=== PATIENT | female | born 1995 | race Caucasian/White ===

== ENCOUNTER 2024-05-03 21:07 | Emergency (ER) | payer MEDICAID, OTHER ==
[~2024-05-03] VITALS: Ht 157.5 cm; Wt 63.5 kg
[2024-05-03 21:27] VITALS: BP_SYST 126; PULSE 86; RESP 17; TEMP 98.7; O2SAT 98
[2024-05-03 22:19] LABS: MEAN CORPUSCULAR VOLUME 91 fL (79.0-98.0)
[2024-05-03 22:23] LABS: BASOPHILS % (AUTO) 0.6 % (0.0-2.0); EOSINOPHILS # (AUTO) 0.1 K/uL (0.0-0.4); EOSINOPHILS % (AUTO) 1.4 % (0.0-4.0); HEMATOCRIT 36.9 % (36-48); HEMOGLOBIN 12.9 g/dL (12.0-16.0); LYMPHOCYTES # (AUTO) 2.4 K/uL (1.0-5.5); LYMPHOCYTES % (AUTO) 34.3 % (20.5-51.5); MEAN CORPUSCULAR HEMOGLOBIN 32 pg (27-31); MEAN CORPUSCULAR HGB CONC 35 % (32-36); MONOCYTES # (AUTO) 0.6 K/uL (0.0-1.0); MONOCYTES % (AUTO) 8.1 % (1.7-9.3); NEUTROPHILS # (AUTO) 3.9 K/uL (1.8-7.7); NEUTROPHILS % (AUTO) 55.6 % (40.0-70.0); PLATELET COUNT (AUTO) 272 K/uL (130-430); RED BLOOD CELL COUNT(AUTO) 4.05 MIL/uL (4.2-6.2); RED CELL DISTRIBUTION WIDTH 12.7 % (9.0-15.0)
[2024-05-03 22:27] LABS: CALCIUM 8.8 mg/dL (8.4-11.0); CREATININE 0.72 mg/dL (0.55-1.30); POTASSIUM 3.9 mmol/L (3.5-5.1)
[2024-05-03 23:50] VITALS: BP_SYST 126; PULSE 86; RESP 17; TEMP 98.7; O2SAT 98
== END 2024-05-03 23:50 | disposition home or self-care (01) ==
LOC: SED 21:07
DX: N83.202 Unspecified ovarian cyst, left side (principal); R22.43 Localized swelling, mass and lump, lower limb, bilateral; R22.33 Localized swelling, mass and lump, upper limb, bilateral
CPT/HCPCS: 36415; 76856; 80048; 85025; 99284